=== PATIENT | male | born 1935 | race Caucasian/White ===

== ENCOUNTER 2016-12-30 09:49 | Day surgery (SDC) | payer MEDICARE, BC ==
[~2016-12-30 09:49] MED LIST: DEPAKOTE250 MG PO; LEVOTHYROXINE50 MCG PO; SEROQUEL100 MG PO; SEROQUEL50 MG PO
[2016-12-30 11:14] LABS: BASOPHILS 0.5 % (0-2); EOSINOPHILS 2.9 % (0-7); HEMATOCRIT 44.9 % (42.0-54.0); HEMOGLOBIN 14.8 g/dL (13.5-17.5); IMMATURE GRANULOCYTES 0.2 % (0-5); LYMPHOCYTES 17.5 % (15-50); MCH 30.8 pg (26.0-34.0); MCV 93.3 fL (80.0-100.0); MEAN PLATELET VOLUME 12.1 fL (7.4-10.4); MONOCYTES 9.7 % (2-11); NEUTROPHILS 69.2 % (40-80); PLATELET COUNT 182 10x3/uL (130-400); RBC 4.81 10x6/uL (4.20-6.10); RDW 13.8 % (11.5-14.5); WBC 6.1 10x3/uL (4.8-10.8)
[2016-12-30 11:29] LABS: CALC OSMOLALITY 283 mosm/kg (275-300); CALCIUM 8.8 mg/dL (8.5-10.1); CARBON DIOXIDE 29.2 mmol/L (21.0-32.0); CHLORIDE - SERUM 106 mmol/L (98-107); GLUCOSE 88 mg/dL (74-106); SODIUM 141 mmol/L (136-145); UREA NITROGEN 23 mg/dL (7-18); eGFR NON AFRICAN AMERICAN 76 mL/min (90-120)
[2016-12-30] MEDS ORDERED: VITAMIN D31000 UNIT PO (12:33)
[2016-12-30] MEDS ORDERED: VITAMIN B-121000 MCG PO (12:33)
[2016-12-30] MEDS ORDERED: PROTONIX20 MG PO (14:02)
== END 2016-12-30 14:45 | disposition home or self-care (01) ==
LOC: D.OPS 09:49
PROVIDERS: Anesthesiology
DX: R13.10 Dysphagia, unspecified (principal); K21.0 Gastro-esophageal reflux disease with esophagitis; K22.2 Esophageal obstruction; K44.9 Diaphragmatic hernia without obstruction or gangrene; I25.10 Atherosclerotic heart disease of native coronary artery without angina pectoris; G20 Parkinson's disease; Z01.812 Encounter for preprocedural laboratory examination

== ENCOUNTER → 2017-06-14 10:55 | Outpatient (CLI) | payer MEDICARE, BC ==
[2016-12-30 12:36] VITALS: BMI 28.9
[~2017-06-14 10:55] MED LIST changes: +PROTONIX20 MG PO; +VITAMIN B-121000 MCG PO; +VITAMIN D31000 UNIT PO
== END | disposition home or self-care (01) ==
LOC: D.LAB 10:55
DX: R19.7 Diarrhea, unspecified (principal)

== ENCOUNTER 2018-03-02 15:41 | Inpatient (IN) | payer MEDICARE, BC ==
[~2018-03-02] VITALS: Ht 172.7 cm; Wt 95.2 kg
--- NOTE | ~2018-03-02 | EC ---
PATIENT:RIKY REDDING DATE OF SERVICE: 03/02/18 SEX: M MEDICAL RECORD: [id number] DATE OF : [birth year] LOCATION:D.M2 D.213 AGE OF PATIENT: 82 ADMISSION DATE: 03/02/18 REFERRING PHYSICIAN: INTERPRETING PHYSICIAN: EMIGDIO PECK MD ECHOCARDIOGRAM REPORT ECHO CHARGES 4 ECHO COMPLETE Date: 03/03 CLINICAL DIAGNOSIS: FEVER,PACER,SEPSIS, ASSESS FOR VEG ECHOCARDIOGRAPHIC MEASUREMENTS (adult normal given) AC root (d.<3.7cm) 4.1 cm LV Septum d (<1.2 cm> 1.4 cm Valve Excursion 1.8 cm LV Septum (systole) 1.6 cm Left Atria (s.<4.0cm> 4.6 cm LVPW d(<1.2cm) 1.7 cm RV (d.<2.3cm) 4.5 cm LVPW (sytole) 1.9 cm LV diastole(<5.6CM) 4.7 cm MV E-F(>70mm/sec) cm LV systole 3.4 cm LVOT Diameter 1.8 cm MV exc.(>10mm) 1.5 cm Est.ejection fraction (50-75%) % DOPPLER: LVIT cm/sec A 57.0 cm/sec E 71.0 cm/sec LA cm/sec RVSP 36 mmHg LVOT 106 cm/sec AOP1/2T m/s Asc. Ao 152 cm/sec RVOT 87 cm/sec RA cm/sec PA 133 cm/sec AV Gradient Peak 9.20 mmHg AV Mean 5.57 mmHg AV Area 1.5 cm MV Gradient Peak 3.81 mmHg MV Mean 1.42 mmHg MV Area cm COMMENTS: Heating Mechanic: Matt BOLES Director Packaging: 1 Dr. Peck TAPE# PACS Pericardial Effusion N DATE OF SERVICE: 03/03/2018 PROCEDURE: Echocardiogram. FINDINGS: 1. Left ventricular chamber size is within normal limits. Left ventricular systolic function is normal. Overall ejection fraction estimated at 55%. 2. Left atrium is enlarged at 4.6 cm. Right atrium and right ventricular chamber sizes are as well mildly dilated. 3. Valvular structures have normal structure and motion. No evidence of ECHOCARDIOGRAM REPORT [id number] RIKY REDDING vegetative endocarditis. 4. No evidence of pericardial effusion or left ventricular thrombus. TRANSINT:[id number] Voice Confirmation ID: [id number] DOCUMENT ID: [id number] EMIGDIO PECK MD at 2001 CC: [id number] DICTATION DATE: 03/03/18 1635 REFINISHER: 03/03/18 1733 ADM IN [facility] [address] [place] [address]
--- NOTE | ~2018-03-02 | CN ---
PATIENT NAME:RIKY REDDING MEDICAL RECORD: [id number] : 39 LOCATION:D.Stacie D.2103 ADMIT DATE: 03/02/18 ACCOUNT: [id number] CONSULTING PHYSICIAN: ATIF STRAUSS MD REFERRING PHYSICIAN: INDRA LANDAVERDE MD DATE OF CONSULTATION: 03/03/2018 CONSULT REQUESTING PHYSICIAN: Indra Landaverde MD REASON FOR CONSULTATION: Acute hypoxic respiratory failure, bacteremia. HISTORY OF PRESENT ILLNESS: Mr. Redding is an 82-year-old gentleman who has history of Parkinson disease and dementia. According to the , he is sick since Tuesday, but there were no fever and chill, no night sweats. They brought him to the ER because he was complaining of some leg pain. Workup showed that the patient was febrile and there was significant leukocytosis. REVIEW OF SYSTEMS: The detail is in history of present illness. PAST MEDICAL HISTORY: 1. Dementia. 2. Parkinson disease. 3. Coronary artery disease. 4. Peripheral vascular disease. 5. Anxiety, depression. PAST SURGICAL HISTORY: 1. Appendectomy. 2. T&A. 3. Pacemaker, thyroidectomy. ALLERGIES: There are no known drug allergy. MEDICATIONS: Optasite is reviewed. PERSONAL AND SOCIAL HISTORY: The patient is an ex-smoker, nondrinker. FAMILY HISTORY: Noncontributory. PHYSICAL EXAMINATION: GENERAL: Now, the patient is lying comfortably. He is not in acute distress. He is wearing nasal cannula oxygen. VITAL SIGNS: The blood pressure is 123/80, pulse is 98, respirations 24, temperature is 97.5 and the T-max 101.7, SPO2 is 96% on 4 liters nasal cannula. HEENT: Conjunctivae are pink. Sclerae are not icteric. NECK: Supple, no JVD. CHEST: There are bilateral crackles. No wheezing. HEART: Rhythm regular, normal heart sound, no murmur. ABDOMEN: Soft, bowel sounds present. No hepatosplenomegaly. RECTAL: Deferred. EXTREMITIES: No cyanosis, clubbing. 1+ pedal edema. SKIN: Warm, normal turgor. CENTRAL NERVOUS SYSTEM: The patient is awake and alert, but he is very confused. There are no obvious cranial nerve abnormality. CONSULT REPORT [id number] RIKY REDDING LABORAT[facility] DATA: CBC: The WBC is 18.3, hemoglobin 13.9, hematocrit 42.1, the platelet count is 121. Chemistry: Sodium was 140, potassium 5.3, BUN is 63, creatinine 2.9. The valproic acid level is 49.9. The proBNP is 700. IMPRESSION: 1. Acute hypoxic respiratory failure. 2. Bacteremia. 3. Systemic inflammatory response syndrome type of syndrome, leukocytosis, fever, and hypotension. 4. Pneumonia, which is multilobar most likely community-acquired pneumonia. 5. Acute kidney injury. 6. Leukocytosis. 7. Febrile illness secondary to bacteremia. 8. Parkinson disease with a severe dementia. 9. Acute renal failure secondary to acute tubular necrosis. RECOMMENDATION: 1. Fluid resuscitation, the care. 2. To keep the CVP 10-12. 3. Supplemental oxygen. 4. Vancomycin IV, meropenem IV. 5. Follow up on the blood cultures. 6. Check the cardiac echo to rule out any bacterial endocarditis. 7. DVT and GI bleed prophylaxis. 8. Discussed with Dr. Landaverde. Discussed with family. Dr. Landaverde, thank you for involving me in the care of Mr. Redding. The critical care time is 50 minutes. The patient will be transferred to the ICU. TRANSINT:[id number] Voice Confirmation ID: [id number] DOCUMENT ID: [id number] ATIF STRAUSS MD at 1110 CC: [id number] DICTATION DATE: 03/03/18 1639 LOG HOOKER: 03/03/18 1746 DIS IN 03/14/18 [place] [id number] [place] [id number]
[2018-03-02] MEDS ORDERED: NORVASC5 MG PO (15:54)
[2018-03-02 16:30] LABS: BASOPHILS 0 % (0-2); EOSINOPHILS 0 % (0-7); HEMATOCRIT 45.8 % (42.0-54.0); HEMOGLOBIN 15.7 g/dL (13.5-17.5); IMMATURE GRANULOCYTES 0.4 % (0-5); LYMPHOCYTES 1.7 % (15-50); MCH 30.4 pg (26.0-34.0); MCHC 34.3 g/dL (31.0-37.0); MCV 88.8 fL (80.0-100.0); MEAN PLATELET VOLUME 11.1 fL (7.4-10.4); MONOCYTES 1.3 % (2-11); NEUTROPHILS 96.6 % (40-80); PLATELET COUNT 122 10x3/uL (130-400); RBC 5.16 10x6/uL (4.20-6.10); WBC 16.6 10x3/uL (4.8-10.8)
[2018-03-02 16:36] LABS: APTT 30.6 SECONDS (22.8-39.4); INR 1.46 (0.85-1.17); PROTIME 17.3 SECONDS (11.6-15.0)
[2018-03-02 16:38] LABS: D-DIMER-QUANTITATIVE 2.05 ug/mLFEU (0.20-0.54)
[2018-03-02 18:11] LABS: ALBUMIN 2.8 g/dL (3.4-5.0); ALKALINE PHOSPHATASE 98 U/L (46-116); ALT (SGPT) 28 U/L (10-68); BILIRUBIN - TOTAL 0.97 mg/dL (0.2-1.3); CALC OSMOLALITY 290 mosm/kg (275-300); CALCIUM 9.1 mg/dL (8.5-10.1); CARBON DIOXIDE 29.5 mmol/L (21.0-32.0); CHLORIDE - SERUM 99 mmol/L (98-107); CREATININE - SERUM 1.7 mg/dL (0.6-1.3); GLUCOSE 101 mg/dL (74-106); POTASSIUM - SERUM 4.3 mmol/L (3.5-5.1); PROTEIN - SERUM 6.3 g/dL (6.4-8.2); SODIUM 139 mmol/L (136-145); UREA NITROGEN 49 mg/dL (7-18); eGFR NON AFRICAN AMERICAN 41 mL/min (90-120)
[2018-03-02 18:21] LABS: AMYLASE - SERUM 23 U/L (25-115); CKMB 0.1 U/L (0.0-3.6); CREATINE KINASE 39 UL (21-232); LIPASE 57 U/L (73-393); MAGNESIUM - SERUM 3.4 mg/dL (1.8-2.4); TROPONIN-I < 0.017 ng/mL (0.000-0.060); VALPROIC ACID (DEPAKOTE) 49.9 ug/mL (50.0-100.0)
[2018-03-02 19:27] VITALS: BP 139/82
[2018-03-02 20:10] VITALS: BP 149/93
[2018-03-02 23:13] LABS: APPEARANCE CLEAR (CLEAR); BILIRUBIN NEGATIVE (NEGATIVE); COLOR DK YELLOW (YELLOW); GLUCOSE NEGATIVE (NEGATIVE); KETONE SMALL mg/dL (NEGATIVE); NITRITE NEGATIVE (NEGATIVE); PROTEIN NEGATIVE (NEGATIVE); SPECIFIC GRAVITY 1.015 (1.005-1.020); UROBILINOGEN NORMAL (NORMAL)
[2018-03-02 23:20] LABS: UDS - AMPHET NEGATIVE QUAL (NEGATIVE); UDS - BARB NEGATIVE QUAL (NEGATIVE); UDS - BENZO NEGATIVE QUAL (NEGATIVE); UDS - COCAINE NEGATIVE QUAL (NEGATIVE); UDS - OPIATE NEGATIVE QUAL (NEGATIVE); UDS - PCP NEGATIVE QUAL (NEGATIVE); UDS - THC NEGATIVE QUAL (NEGATIVE)
[2018-03-03] VITALS (10 sets, daily range): BP systolic 83–160; BP diastolic 49–87; Ht 172.7 cm; Wt 95.2 kg
[2018-03-03 06:51] LABS: BASOPHILS 0.1 % (0-2); EOSINOPHILS 0 % (0-7); HEMATOCRIT 42.1 % (42.0-54.0); HEMOGLOBIN 13.9 g/dL (13.5-17.5); IMMATURE GRANULOCYTES 0.2 % (0-5); LYMPHOCYTES 3.2 % (15-50); MCH 29.4 pg (26.0-34.0); MEAN PLATELET VOLUME 12.1 fL (7.4-10.4); MONOCYTES 8.4 % (2-11); NEUTROPHILS 88.1 % (40-80); PLATELET COUNT 121 10x3/uL (130-400); RBC 4.73 10x6/uL (4.20-6.10); RDW 16.6 % (11.5-14.5); WBC 18.3 10x3/uL (4.8-10.8)
[2018-03-03 07:05] LABS: ANION GAP 15.5 mmol/L (8-16); CALCIUM 9.4 mg/dL (8.5-10.1); CARBON DIOXIDE 26.8 mmol/L (21.0-32.0)
[2018-03-03 07:06] LABS: CREATININE - SERUM 2.9 mg/dL (0.6-1.3); POTASSIUM - SERUM 5.3 mmol/L (3.5-5.1)
[2018-03-03 14:07] LABS: ERYTHROCYTE SEDIMENTATION RATE 55 mm/hr (0-20)
[2018-03-03 15:28] LABS: APPEARANCE CLEAR (CLEAR); BILIRUBIN NEGATIVE (NEGATIVE); COLOR DK YELLOW (YELLOW); GLUCOSE NEGATIVE (NEGATIVE); KETONE NEGATIVE (NEGATIVE); NITRITE NEGATIVE (NEGATIVE); PROTEIN TRACE mg/dL (NEGATIVE); UROBILINOGEN NORMAL (NORMAL)
[2018-03-03 15:29] LABS: RED CELLS - URINE 0-5 /hpf (0-5)
[2018-03-03 15:30] LABS: BACTERIA MANY /hpf (NONE SEEN); WHITE CELLS - URINE OCC /hpf (0-5)
[2018-03-03 15:38] LABS: PROTEIN - URINE 104.1 mg/dL (0.0-11.9)
[2018-03-03 15:42] LABS: CREATININE - URINE 285.9 mg/dL (30-125); PRO/CRE RATIO URINE 0.4 mg/g
[2018-03-04] VITALS (25 sets, daily range): BP systolic 101–136; BP diastolic 59–768
[2018-03-04 04:14] LABS: BASOPHILS 0.1 % (0-2); EOSINOPHILS 0.1 % (0-7); HEMATOCRIT 38.5 % (42.0-54.0); HEMOGLOBIN 12.5 g/dL (13.5-17.5); IMMATURE GRANULOCYTES 0.2 % (0-5); MCH 29.5 pg (26.0-34.0); MCHC 32.5 g/dL (31.0-37.0); MCV 90.8 fL (80.0-100.0); MEAN PLATELET VOLUME 12.1 fL (7.4-10.4); MONOCYTES 7.8 % (2-11); NEUTROPHILS 85.8 % (40-80); PLATELET COUNT 108 10x3/uL (130-400); RBC 4.24 10x6/uL (4.20-6.10)
[2018-03-04 04:31] LABS: ANION GAP 10.1 mmol/L (8-16); BILIRUBIN - TOTAL 0.68 mg/dL (0.2-1.3); CALCIUM 8.4 mg/dL (8.5-10.1); CARBON DIOXIDE 28.7 mmol/L (21.0-32.0); POTASSIUM - SERUM 4.8 mmol/L (3.5-5.1); VANCOMYCIN - RANDOM 13.3 ug/mL (10.0-20.0)
[2018-03-04 04:51] LABS: CREATININE - SERUM 1.5 mg/dL (0.6-1.3)
[2018-03-05] VITALS (24 sets, daily range): BP systolic 105–147; BP diastolic 65–92
[2018-03-05 04:04] LABS: BASOPHILS 0.1 % (0-2); EOSINOPHILS 0.3 % (0-7); HEMATOCRIT 37.9 % (42.0-54.0); HEMOGLOBIN 12.2 g/dL (13.5-17.5); IMMATURE GRANULOCYTES 0.2 % (0-5); LYMPHOCYTES 10.5 % (15-50); MCHC 32.2 g/dL (31.0-37.0); MCV 90.2 fL (80.0-100.0); MEAN PLATELET VOLUME 11.6 fL (7.4-10.4); MONOCYTES 11.6 % (2-11); NEUTROPHILS 77.3 % (40-80); PLATELET COUNT 101 10x3/uL (130-400); RDW 16.8 % (11.5-14.5); WBC 8.7 10x3/uL (4.8-10.8)
[2018-03-05 04:25] LABS: ALBUMIN 1.9 g/dL (3.4-5.0); ANION GAP 8.8 mmol/L (8-16); BILIRUBIN - TOTAL 0.45 mg/dL (0.2-1.3); CALCIUM 8.4 mg/dL (8.5-10.1); POTASSIUM - SERUM 4.8 mmol/L (3.5-5.1); VANCOMYCIN - RANDOM 13.9 ug/mL (10.0-20.0)
[2018-03-05 04:40] LABS: CREATININE - SERUM 1.1 mg/dL (0.6-1.3)
[2018-03-06] VITALS (23 sets, daily range): BP systolic 100–160; BP diastolic 67–100
[2018-03-06 04:02] LABS: BASOPHILS 0.1 % (0-2); EOSINOPHILS 0.1 % (0-7); HEMATOCRIT 36.4 % (42.0-54.0); HEMOGLOBIN 11.7 g/dL (13.5-17.5); IMMATURE GRANULOCYTES 0.4 % (0-5); LYMPHOCYTES 10.1 % (15-50); MCH 28.9 pg (26.0-34.0); MCHC 32.1 g/dL (31.0-37.0); MCV 89.9 fL (80.0-100.0); MEAN PLATELET VOLUME 11.9 fL (7.4-10.4); MONOCYTES 12.5 % (2-11); NEUTROPHILS 76.8 % (40-80); PLATELET COUNT 95 10x3/uL (130-400); RBC 4.05 10x6/uL (4.20-6.10); RDW 16.9 % (11.5-14.5)
[2018-03-06 04:06] LABS: WBC 12.9 10x3/uL (4.8-10.8)
[2018-03-06 04:18] LABS: ALBUMIN 1.8 g/dL (3.4-5.0); ALKALINE PHOSPHATASE 129 U/L (46-116); ALT (SGPT) 38 U/L (10-68); BILIRUBIN - TOTAL 0.57 mg/dL (0.2-1.3); CALC OSMOLALITY 290 mosm/kg (275-300); CALCIUM 7.9 mg/dL (8.5-10.1); CARBON DIOXIDE 26.7 mmol/L (21.0-32.0); CHLORIDE - SERUM 109 mmol/L (98-107); CREATININE - SERUM 0.9 mg/dL (0.6-1.3); GLUCOSE 116 mg/dL (74-106); POTASSIUM - SERUM 4.5 mmol/L (3.5-5.1); PROTEIN - SERUM 5.4 g/dL (6.4-8.2); SODIUM 142 mmol/L (136-145); UREA NITROGEN 32 mg/dL (7-18); VANCOMYCIN - RANDOM 11.3 ug/mL (10.0-20.0); eGFR NON AFRICAN AMERICAN 86 mL/min (90-120)
[2018-03-06 16:13] LABS: SPE - A/G RATIO 0.9 (0.7-1.7); SPE - ALBUMIN 2.4 g/dL (2.9-4.4); SPE - ALPHA-1 GLOBULIN 0.3 g/dL (0.0-0.4); SPE - ALPHA-2 GLOBULIN 0.8 g/dL (0.4-1.0); SPE - BETA GLOBULIN 0.7 g/dL (0.7-1.3); SPE - GAMMA GLOBULIN 0.9 g/dL (0.4-1.8); SPE - M-SPIKE 0.1 g/dL (Not Observed); SPE - TOTAL PROTEIN 5.1 g/dL (6.0-8.5)
[2018-03-06 17:10] LABS: UPE RAND - ALBUMIN 13.8 % (()); UPE RAND - ALPHA 1 GLOBULIN 3.1 % (()); UPE RAND - ALPHA 2 GLOBULIN 22.1 % (()); UPE RAND - BETA GLOBULIN 29.5 % (()); UPE RAND - GAMMA GLOBULIN 31.5 % (())
[2018-03-07] VITALS (21 sets, daily range): BP systolic 110–145; BP diastolic 68–839
[2018-03-07 04:54] LABS: BASOPHILS 0.2 % (0-2); EOSINOPHILS 1.7 % (0-7); HEMATOCRIT 34.3 % (42.0-54.0); HEMOGLOBIN 11.1 g/dL (13.5-17.5); IMMATURE GRANULOCYTES 0.8 % (0-5); LYMPHOCYTES 12.5 % (15-50); MCH 28.9 pg (26.0-34.0); MCHC 32.4 g/dL (31.0-37.0); MCV 89.3 fL (80.0-100.0); MEAN PLATELET VOLUME 11.6 fL (7.4-10.4); MONOCYTES 8.9 % (2-11); NEUTROPHILS 75.9 % (40-80); RBC 3.84 10x6/uL (4.20-6.10); RDW 17.3 % (11.5-14.5)
[2018-03-07 05:11] LABS: PLATELET COUNT 133 10x3/uL (130-400)
[2018-03-07 05:31] LABS: APTT 40.3 SECONDS (22.8-39.4); INR 1.21 (0.85-1.17); PROTIME 14.9 SECONDS (11.6-15.0)
[2018-03-07 05:37] LABS: ALBUMIN 1.6 g/dL (3.4-5.0); ALKALINE PHOSPHATASE 132 U/L (46-116); ALT (SGPT) 31 U/L (10-68); BILIRUBIN - TOTAL 0.59 mg/dL (0.2-1.3); CALC OSMOLALITY 289 mosm/kg (275-300); CALCIUM 7.8 mg/dL (8.5-10.1); CARBON DIOXIDE 26.3 mmol/L (21.0-32.0); CHLORIDE - SERUM 111 mmol/L (98-107); CREATININE - SERUM 0.7 mg/dL (0.6-1.3); GLUCOSE 93 mg/dL (74-106); LDH 282 U/L (85-227); MAGNESIUM - SERUM 2.1 mg/dL (1.8-2.4); PHOSPHOROUS 2.5 mg/dL (2.5-4.9); POTASSIUM - SERUM 4.3 mmol/L (3.5-5.1); PROTEIN - SERUM 5.1 g/dL (6.4-8.2); SODIUM 143 mmol/L (136-145); UREA NITROGEN 27 mg/dL (7-18); VANCOMYCIN - RANDOM 32.9 ug/mL (10.0-20.0); eGFR NON AFRICAN AMERICAN > 90 mL/min (90-120)
[2018-03-08 01:30] VITALS: BP 121/71; BP 162/95
[2018-03-08 05:29] VITALS: BP 127/88
[2018-03-08 07:08] LABS: BASOPHILS 0.3 % (0-2); EOSINOPHILS 1.5 % (0-7); HEMATOCRIT 34.2 % (42.0-54.0); LYMPHOCYTES 11.8 % (15-50); MCH 28.8 pg (26.0-34.0); MCHC 32.2 g/dL (31.0-37.0); MCV 89.5 fL (80.0-100.0); MEAN PLATELET VOLUME 11.2 fL (7.4-10.4); MONOCYTES 7.1 % (2-11); NEUTROPHILS 78.3 % (40-80); RBC 3.82 10x6/uL (4.20-6.10); WBC 11.6 10x3/uL (4.8-10.8)
[2018-03-08 07:25] LABS: ALBUMIN 1.5 g/dL (3.4-5.0); ALKALINE PHOSPHATASE 144 U/L (46-116); ALT (SGPT) 35 U/L (10-68); BILIRUBIN - TOTAL 0.63 mg/dL (0.2-1.3); CALC OSMOLALITY 286 mosm/kg (275-300); CALCIUM 8.3 mg/dL (8.5-10.1); CARBON DIOXIDE 26.9 mmol/L (21.0-32.0); CHLORIDE - SERUM 110 mmol/L (98-107); GLUCOSE 90 mg/dL (74-106); POTASSIUM - SERUM 4.4 mmol/L (3.5-5.1); PROTEIN - SERUM 5.1 g/dL (6.4-8.2); SODIUM 142 mmol/L (136-145); UREA NITROGEN 25 mg/dL (7-18); VANCOMYCIN - RANDOM 26.9 ug/mL (10.0-20.0); eGFR NON AFRICAN AMERICAN 86 mL/min (90-120)
[2018-03-08 07:36] LABS: PLATELET COUNT 215 10x3/uL (130-400)
[2018-03-08 07:41] LABS: CREATININE - SERUM 0.9 mg/dL (0.6-1.3)
[2018-03-08 08:46] VITALS: BP 152/80
[2018-03-08 12:17] VITALS: BP 136/78
[2018-03-08 16:25] VITALS: BP 137/79
[2018-03-08 21:01] VITALS: BP 155/86
[2018-03-09 01:29] VITALS: BP 145/94
[2018-03-09 05:09] VITALS: BP 143/79
[2018-03-09 06:37] LABS: BASOPHILS 0.1 % (0-2); EOSINOPHILS 3.3 % (0-7); HEMATOCRIT 32.8 % (42.0-54.0); HEMOGLOBIN 10.8 g/dL (13.5-17.5); MCH 29.4 pg (26.0-34.0); MCHC 32.9 g/dL (31.0-37.0); MCV 89.4 fL (80.0-100.0); MEAN PLATELET VOLUME 11.1 fL (7.4-10.4); MONOCYTES 11.3 % (2-11); NEUTROPHILS 74.3 % (40-80); PLATELET COUNT 248 10x3/uL (130-400); RBC 3.67 10x6/uL (4.20-6.10); RDW 16.6 % (11.5-14.5); WBC 9.4 10x3/uL (4.8-10.8)
[2018-03-09 06:45] LABS: CALC OSMOLALITY 281 mosm/kg (275-300); CALCIUM 8.1 mg/dL (8.5-10.1); CARBON DIOXIDE 27.5 mmol/L (21.0-32.0); CHLORIDE - SERUM 108 mmol/L (98-107); CREATININE - SERUM 0.7 mg/dL (0.6-1.3); GLUCOSE 96 mg/dL (74-106); POTASSIUM - SERUM 4.2 mmol/L (3.5-5.1); SODIUM 140 mmol/L (136-145); UREA NITROGEN 21 mg/dL (7-18); eGFR NON AFRICAN AMERICAN > 90 mL/min (90-120)
[2018-03-09 08:48] VITALS: BP 117/76
[2018-03-09 10:48] VITALS: BP 112/71
[2018-03-09 15:41] VITALS: BP 128/68
[2018-03-09 20:08] LABS: AEROBE ID Final report (())
[2018-03-09 22:34] VITALS: BP 166/97
[2018-03-10 01:00] VITALS: BP 123/72
[2018-03-10 05:59] VITALS: BP 145/81
[2018-03-10 06:47] LABS: BASOPHILS 0.2 % (0-2); EOSINOPHILS 3.6 % (0-7); HEMATOCRIT 32.7 % (42.0-54.0); HEMOGLOBIN 10.5 g/dL (13.5-17.5); IMMATURE GRANULOCYTES 2.8 % (0-5); LYMPHOCYTES 9.7 % (15-50); MCH 28.7 pg (26.0-34.0); MCHC 32.1 g/dL (31.0-37.0); MCV 89.3 fL (80.0-100.0); MEAN PLATELET VOLUME 10.8 fL (7.4-10.4); MONOCYTES 9.2 % (2-11); NEUTROPHILS 74.5 % (40-80); RBC 3.66 10x6/uL (4.20-6.10); RDW 16.5 % (11.5-14.5); WBC 10.5 10x3/uL (4.8-10.8)
[2018-03-10 06:48] LABS: PLATELET COUNT 300 10x3/uL (130-400)
[2018-03-10 07:01] LABS: CALC OSMOLALITY 279 mosm/kg (275-300); CALCIUM 7.9 mg/dL (8.5-10.1); CARBON DIOXIDE 29.9 mmol/L (21.0-32.0); CHLORIDE - SERUM 107 mmol/L (98-107); GLUCOSE 77 mg/dL (74-106); POTASSIUM - SERUM 4.3 mmol/L (3.5-5.1); SODIUM 139 mmol/L (136-145); UREA NITROGEN 20 mg/dL (7-18); eGFR NON AFRICAN AMERICAN 86 mL/min (90-120)
[2018-03-10 07:06] LABS: CREATININE - SERUM 0.9 mg/dL (0.6-1.3)
[2018-03-10 07:52] VITALS: BP 135/81
[2018-03-10 12:02] VITALS: BP 121/76
[2018-03-10 16:27] VITALS: BP 150/91
[2018-03-10 20:00] VITALS: BP 180/99
[2018-03-11] VITALS: BP 146/86
[2018-03-11 04:00] VITALS: BP 165/90
[2018-03-11 06:06] LABS: BASOPHILS 0.2 % (0-2); EOSINOPHILS 2.5 % (0-7); HEMATOCRIT 33.1 % (42.0-54.0); HEMOGLOBIN 10.8 g/dL (13.5-17.5); IMMATURE GRANULOCYTES 2.2 % (0-5); MCH 28.8 pg (26.0-34.0); MCHC 32.6 g/dL (31.0-37.0); MCV 88.3 fL (80.0-100.0); MEAN PLATELET VOLUME 10.6 fL (7.4-10.4); MONOCYTES 9.3 % (2-11); NEUTROPHILS 79.8 % (40-80); PLATELET COUNT 336 10x3/uL (130-400); RBC 3.75 10x6/uL (4.20-6.10); RDW 16.3 % (11.5-14.5)
[2018-03-11 06:23] LABS: CALC OSMOLALITY 277 mosm/kg (275-300); CALCIUM 8.3 mg/dL (8.5-10.1); CARBON DIOXIDE 28.5 mmol/L (21.0-32.0); CHLORIDE - SERUM 105 mmol/L (98-107); CREATININE - SERUM 0.8 mg/dL (0.6-1.3); GLUCOSE 88 mg/dL (74-106); POTASSIUM - SERUM 4.3 mmol/L (3.5-5.1); SODIUM 139 mmol/L (136-145); UREA NITROGEN 16 mg/dL (7-18); eGFR NON AFRICAN AMERICAN > 90 mL/min (90-120)
[2018-03-11 08:52] VITALS: BP 147/89
[2018-03-11 16:33] VITALS: BP 137/78
[2018-03-11 21:43] VITALS: BP 153/88
[2018-03-12 03:03] VITALS: BP 137/77
[2018-03-12 05:46] LABS: CALC OSMOLALITY 276 mosm/kg (275-300); CALCIUM 8.6 mg/dL (8.5-10.1); CARBON DIOXIDE 28.4 mmol/L (21.0-32.0); CHLORIDE - SERUM 107 mmol/L (98-107); CREATININE - SERUM 0.8 mg/dL (0.6-1.3); GLUCOSE 92 mg/dL (74-106); POTASSIUM - SERUM 4.1 mmol/L (3.5-5.1); SODIUM 138 mmol/L (136-145); UREA NITROGEN 16 mg/dL (7-18); eGFR NON AFRICAN AMERICAN > 90 mL/min (90-120)
[2018-03-12 05:51] LABS: BASOPHILS 0.2 % (0-2); EOSINOPHILS 3.1 % (0-7); HEMATOCRIT 32.5 % (42.0-54.0); HEMOGLOBIN 10.8 g/dL (13.5-17.5); IMMATURE GRANULOCYTES 1.8 % (0-5); MCH 29.3 pg (26.0-34.0); MCHC 33.2 g/dL (31.0-37.0); MCV 88.1 fL (80.0-100.0); MEAN PLATELET VOLUME 10.6 fL (7.4-10.4); MONOCYTES 9.2 % (2-11); NEUTROPHILS 77.7 % (40-80); PLATELET COUNT 364 10x3/uL (130-400); RBC 3.69 10x6/uL (4.20-6.10); RDW 16.1 % (11.5-14.5); WBC 11.8 10x3/uL (4.8-10.8)
[2018-03-12 06:01] VITALS: BP 133/86
[2018-03-12 08:21] VITALS: BP 156/90
[2018-03-12 11:36] VITALS: BP 154/96
[2018-03-12 16:14] VITALS: BP 145/89
[2018-03-12 20:00] VITALS: BP 130/79
[2018-03-13] VITALS: BP 124/72
[2018-03-13 04:00] VITALS: BP 128/76
[2018-03-13 07:20] LABS: BASOPHILS 0.3 % (0-2); HEMATOCRIT 34.7 % (42.0-54.0); HEMOGLOBIN 11.3 g/dL (13.5-17.5); IMMATURE GRANULOCYTES 2.1 % (0-5); LYMPHOCYTES 6.7 % (15-50); MCH 28.9 pg (26.0-34.0); MCHC 32.6 g/dL (31.0-37.0); MCV 88.7 fL (80.0-100.0); MEAN PLATELET VOLUME 10.9 fL (7.4-10.4); MONOCYTES 9.3 % (2-11); NEUTROPHILS 78.6 % (40-80); PLATELET COUNT 410 10x3/uL (130-400); RBC 3.91 10x6/uL (4.20-6.10); RDW 16.3 % (11.5-14.5); WBC 11.7 10x3/uL (4.8-10.8)
[2018-03-13 07:31] LABS: CALC OSMOLALITY 280 mosm/kg (275-300); CALCIUM 8.4 mg/dL (8.5-10.1); CARBON DIOXIDE 30.4 mmol/L (21.0-32.0); CHLORIDE - SERUM 105 mmol/L (98-107); GLUCOSE 88 mg/dL (74-106); POTASSIUM - SERUM 3.8 mmol/L (3.5-5.1); SODIUM 140 mmol/L (136-145); UREA NITROGEN 20 mg/dL (7-18); eGFR NON AFRICAN AMERICAN 76 mL/min (90-120)
[2018-03-13 08:00] VITALS: BP 130/91
[2018-03-13 08:44] VITALS: BP 129/86
[2018-03-13 12:36] VITALS: BP 125/82
[2018-03-13 17:45] VITALS: BP 127/80
[2018-03-14] VITALS: BP 207/110
[2018-03-14 05:41] LABS: BASOPHILS 0.2 % (0-2); EOSINOPHILS 1.8 % (0-7); HEMATOCRIT 37.2 % (42.0-54.0); HEMOGLOBIN 12.2 g/dL (13.5-17.5); IMMATURE GRANULOCYTES 1.7 % (0-5); LYMPHOCYTES 8.2 % (15-50); MCH 28.6 pg (26.0-34.0); MCHC 32.8 g/dL (31.0-37.0); MCV 87.3 fL (80.0-100.0); MEAN PLATELET VOLUME 10.6 fL (7.4-10.4); MONOCYTES 8.2 % (2-11); NEUTROPHILS 79.9 % (40-80); PLATELET COUNT 457 10x3/uL (130-400); RBC 4.26 10x6/uL (4.20-6.10); RDW 16.1 % (11.5-14.5); WBC 13.1 10x3/uL (4.8-10.8)
[2018-03-14 06:15] LABS: ALBUMIN 1.9 g/dL (3.4-5.0); ALKALINE PHOSPHATASE 171 U/L (46-116); ALT (SGPT) 38 U/L (10-68); BILIRUBIN - TOTAL 0.44 mg/dL (0.2-1.3); CALC OSMOLALITY 283 mosm/kg (275-300); CALCIUM 8.7 mg/dL (8.5-10.1); CARBON DIOXIDE 28.9 mmol/L (21.0-32.0); CHLORIDE - SERUM 103 mmol/L (98-107); GLUCOSE 115 mg/dL (74-106); POTASSIUM - SERUM 4.1 mmol/L (3.5-5.1); PROTEIN - SERUM 6.1 g/dL (6.4-8.2); SODIUM 139 mmol/L (136-145); eGFR NON AFRICAN AMERICAN 76 mL/min (90-120)
[2018-03-14 06:16] LABS: UREA NITROGEN 27 mg/dL (7-18)
[2018-03-14 07:00] VITALS: BP 144/85
[2018-03-14 10:25] VITALS: BP 125/83
[2018-03-14 11:00] VITALS: BP 121/79
[2018-03-14] MEDS ORDERED: LASIX40 MG PO (13:06)
== END 2018-03-14 18:58 | DRG 871 ==
LOC: D.ER 15:41 → D.EDHOLD 19:33 → D.ICU 19:33 → D.M2 19:33 → D.ICU 03-03 20:03 → D.M2 03-07 22:18
PROVIDERS: Family Medicine; Internal Medicine Nephrology; Internal Medicine Pulmonary Disease
PROC: 02H633Z Insertion of Infusion Device into Right Atrium, Percutaneous Approach (ICD-10-PCS; principal; 2018-03-03)
PROC: B244ZZZ Ultrasonography of Right Heart (ICD-10-PCS; 2018-03-03)
DX: A41.89 Other specified sepsis (principal); J96.01 Acute respiratory failure with hypoxia; N17.0 Acute kidney failure with tubular necrosis; J69.0 Pneumonitis due to inhalation of food and vomit; N39.0 Urinary tract infection, site not specified; K80.00 Calculus of gallbladder with acute cholecystitis without obstruction; D68.4 Acquired coagulation factor deficiency; G20 Parkinson's disease; F02.80 Dementia in other diseases classified elsewhere, unspecified severity, without behavioral disturbance, psychotic disturbance, mood disturbance, and anxiety; Z95.0 Presence of cardiac pacemaker; F32.9 Major depressive disorder, single episode, unspecified; F41.9 Anxiety disorder, unspecified; I25.10 Atherosclerotic heart disease of native coronary artery without angina pectoris; I10 Essential (primary) hypertension; Z87.891 Personal history of nicotine dependence; R74.8 Abnormal levels of other serum enzymes; D69.6 Thrombocytopenia, unspecified; E03.9 Hypothyroidism, unspecified; R53.81 Other malaise; K31.84 Gastroparesis; K22.8 Other specified diseases of esophagus; R65.20 Severe sepsis without septic shock

== ENCOUNTER → 2018-07-13 13:29 | Outpatient (CLI) | payer MEDICARE, BC ==
[2018-03-03 21:48] VITALS: BMI 20.3
[~2018-07-13 13:29] MED LIST changes: +LASIX40 MG PO; +NORVASC5 MG PO
== END | disposition home or self-care (01) ==
LOC: D.US 13:29
DX: R19.7 Diarrhea, unspecified (principal); R19.4 Change in bowel habit; R63.4 Abnormal weight loss

== ENCOUNTER → 2018-07-17 09:08 | Outpatient (CLI) | payer MEDICARE, BC ==
[2018-03-03 21:48] VITALS: BMI 20.3
== END | disposition home or self-care (01) ==
LOC: D.US 09:08
DX: R19.7 Diarrhea, unspecified (principal); R19.4 Change in bowel habit; R63.4 Abnormal weight loss

== ENCOUNTER 2018-08-12 08:51 | Emergency (ER) | payer MEDICARE, BC ==
[2018-08-12 09:33] LABS: BASOPHILS 0.1 % (0-2); EOSINOPHILS 0 % (0-7); HEMATOCRIT 40.5 % (42.0-54.0); HEMOGLOBIN 13.8 g/dL (13.5-17.5); IMMATURE GRANULOCYTES 0.2 % (0-5); LYMPHOCYTES 6.3 % (15-50); MCH 30.1 pg (26.0-34.0); MCHC 34.1 g/dL (31.0-37.0); MCV 88.4 fL (80.0-100.0); MEAN PLATELET VOLUME 11.2 fL (7.4-10.4); NEUTROPHILS 80.4 % (40-80); RBC 4.58 10x6/uL (4.20-6.10); RDW 14.5 % (11.5-14.5); WBC 8.3 10x3/uL (4.8-10.8)
[2018-08-12 09:35] LABS: PLATELET COUNT 160 10x3/uL (130-400)
[2018-08-12 09:48] LABS: ALBUMIN 2.8 g/dL (3.4-5.0); ALKALINE PHOSPHATASE 72 U/L (46-116); ALT (SGPT) 23 U/L (10-68); BILIRUBIN - TOTAL 0.45 mg/dL (0.2-1.3); CALC OSMOLALITY 272 mosm/kg (275-300); CALCIUM 8.8 mg/dL (8.5-10.1); CHLORIDE - SERUM 100 mmol/L (98-107); CREATININE - SERUM 1.4 mg/dL (0.6-1.3); GLUCOSE 98 mg/dL (74-106); POTASSIUM - SERUM 4.3 mmol/L (3.5-5.1); PROTEIN - SERUM 6.4 g/dL (6.4-8.2); SODIUM 134 mmol/L (136-145); UREA NITROGEN 26 mg/dL (7-18); eGFR NON AFRICAN AMERICAN 52 mL/min (90-120)
[2018-08-12 09:56] LABS: CREATINE KINASE 48 UL (21-232); LIPASE 138 U/L (73-393); PRO BNP 1393 pg/mL (0-450); TROPONIN-I < 0.017 ng/mL (0.000-0.060)
[2018-08-12 10:20] LABS: APPEARANCE CLEAR (CLEAR); COLOR YELLOW (YELLOW); NITRITE NEGATIVE (NEGATIVE); SPECIFIC GRAVITY 1.015 (1.005-1.020)
[2018-08-12 10:21] LABS: BILIRUBIN NEGATIVE (NEGATIVE); GLUCOSE NEGATIVE (NEGATIVE); KETONE SMALL mg/dL (NEGATIVE); PROTEIN NEGATIVE (NEGATIVE); UROBILINOGEN NORMAL (NORMAL)
[2018-08-12 10:25] LABS: BACTERIA FEW /hpf (NONE SEEN); EPITHELIAL CELLS 0-5 /hpf (0-5); RED CELLS - URINE 0-5 /hpf (0-5); WHITE CELLS - URINE 0-5 /hpf (0-5)
== END 2018-08-12 10:25 | disposition home or self-care (01) ==
LOC: D.ER 08:51
PROVIDERS: Family Medicine
DX: R50.9 Fever, unspecified (principal); F03.90 Unspecified dementia, unspecified severity, without behavioral disturbance, psychotic disturbance, mood disturbance, and anxiety; R53.81 Other malaise; G20 Parkinson's disease; Z95.0 Presence of cardiac pacemaker; Z85.828 Personal history of other malignant neoplasm of skin

== ENCOUNTER 2018-10-10 11:56 | Emergency (ER) | payer MEDICARE, BC ==
[~2018-10-10] VITALS: Ht 172.7 cm; Wt 81.8 kg
[2018-10-10 12:10] VITALS: Ht 172.7 cm; Wt 81.8 kg
[2018-10-10 13:38] LABS: BASOPHILS 0.1 % (0-2); EOSINOPHILS 0.2 % (0-7); HEMATOCRIT 45.6 % (42.0-54.0); IMMATURE GRANULOCYTES 0.1 % (0-5); LYMPHOCYTES 5.2 % (15-50); MCH 30.3 pg (26.0-34.0); MCHC 32.9 g/dL (31.0-37.0); MCV 92.1 fL (80.0-100.0); MONOCYTES 5.3 % (2-11); NEUTROPHILS 89.1 % (40-80); RBC 4.95 10x6/uL (4.20-6.10); RDW 14.4 % (11.5-14.5); WBC 8.9 10x3/uL (4.8-10.8)
[2018-10-10 13:49] LABS: PLATELET COUNT 271 10x3/uL (130-400)
[2018-10-10 13:51] LABS: ALBUMIN 3.3 g/dL (3.4-5.0); ANION GAP 16.1 mmol/L (8-16); BILIRUBIN - TOTAL 0.43 mg/dL (0.2-1.3); CALCIUM 9.4 mg/dL (8.5-10.1); CARBON DIOXIDE 26.1 mmol/L (21.0-32.0); CREATININE - SERUM 1.5 mg/dL (0.6-1.3); POTASSIUM - SERUM 4.2 mmol/L (3.5-5.1); PROTEIN - SERUM 8.4 g/dL (6.4-8.2)
[2018-10-10] MEDS ORDERED: ZOFRAN ODT4 MG/UDTAB PO (16:36)
[2018-10-10 17:11] VITALS: BP 158/95
== END 2018-10-10 17:15 | disposition home or self-care (01) ==
LOC: D.ER 11:56
PROVIDERS: Emergency Medicine
DX: B34.9 Viral infection, unspecified (principal); R11.2 Nausea with vomiting, unspecified

== ENCOUNTER 2019-08-21 17:12 | Emergency (ER) | payer MEDICARE, BC ==
[~2019-08-21] VITALS: Ht 172.7 cm; Wt 81.8 kg
[~2019-08-21 17:12] MED LIST changes: +ZOFRAN ODT4 MG/UDTAB PO
[2019-08-21 17:20] VITALS: Ht 172.7 cm; Wt 81.8 kg
[2019-08-21] MEDS ORDERED: PROPRANOLOL HCL20 MG PO (17:22)
[2019-08-21 17:51] LABS: BASOPHILS 0.2 % (0-2); EOSINOPHILS 1.8 % (0-7); HEMATOCRIT 48.3 % (42.0-54.0); HEMOGLOBIN 16.3 g/dL (13.5-17.5); IMMATURE GRANULOCYTES 0.3 % (0-5); LYMPHOCYTES 10.1 % (15-50); MCH 31.8 pg (26.0-34.0); MCHC 33.7 g/dL (31.0-37.0); MCV 94.3 fL (80.0-100.0); MEAN PLATELET VOLUME 10.8 fL (7.4-10.4); MONOCYTES 8.2 % (2-11); NEUTROPHILS 79.4 % (40-80); PLATELET COUNT 218 10x3/uL (130-400); RBC 5.12 10x6/uL (4.20-6.10); RDW 12.8 % (11.5-14.5); WBC 10.3 10x3/uL (4.8-10.8)
[2019-08-21 18:09] LABS: CALC OSMOLALITY 287 mosm/kg (275-300); CALCIUM 8.8 mg/dL (8.5-10.1); CARBON DIOXIDE 29.1 mmol/L (21.0-32.0); CHLORIDE - SERUM 106 mmol/L (98-107); CREATININE - SERUM 1.1 mg/dL (0.6-1.3); GLUCOSE 121 mg/dL (74-106); POTASSIUM - SERUM 4.3 mmol/L (3.5-5.1); SODIUM 142 mmol/L (136-145); UREA NITROGEN 23 mg/dL (7-18); eGFR NON AFRICAN AMERICAN 68 mL/min (90-120)
[2019-08-21 18:18] LABS: ALBUMIN 3.7 g/dL (3.4-5.0); ALKALINE PHOSPHATASE 78 U/L (46-116); ALT (SGPT) 32 U/L (10-68); AMYLASE - SERUM 105 U/L (25-115); BILIRUBIN - TOTAL 0.44 mg/dL (0.2-1.3); LIPASE 304 U/L (73-393)
[2019-08-21 18:19] LABS: TROPONIN-I < 0.017 ng/mL (0.000-0.060)
[2019-08-21] MEDS ORDERED: ZOFRAN ODT4 MG/UDTAB PO (20:09)
[2019-08-21 20:10] LABS: APPEARANCE CLEAR (CLEAR); BILIRUBIN NEGATIVE (NEGATIVE); COLOR YELLOW (YELLOW); GLUCOSE NEGATIVE (NEGATIVE); KETONE MODERATE mg/dL (NEGATIVE); NITRITE NEGATIVE (NEGATIVE); PROTEIN NEGATIVE (NEGATIVE); UROBILINOGEN NORMAL (NORMAL)
[2019-08-21 20:25] VITALS: BP 150/90
== END 2019-08-21 20:18 | disposition home or self-care (01) ==
LOC: D.ER 17:12
PROVIDERS: Family Medicine
DX: R11.2 Nausea with vomiting, unspecified (principal); G20 Parkinson's disease; E07.9 Disorder of thyroid, unspecified; Z95.0 Presence of cardiac pacemaker; F03.90 Unspecified dementia, unspecified severity, without behavioral disturbance, psychotic disturbance, mood disturbance, and anxiety

== ENCOUNTER 2019-11-16 12:48 | Emergency (ER) | payer MEDICARE, BC ==
[~2019-11-16] VITALS: Ht 172.7 cm; Wt 88.6 kg
[~2019-11-16 12:48] MED LIST changes: +PROPRANOLOL HCL20 MG PO
[2019-11-16 12:55] VITALS: Ht 172.7 cm; Wt 88.6 kg
[2019-11-16 13:22] LABS: BASOPHILS 0.3 % (0-2); EOSINOPHILS 3.1 % (0-7); HEMATOCRIT 44.8 % (42.0-54.0); HEMOGLOBIN 15.2 g/dL (13.5-17.5); IMMATURE GRANULOCYTES 0.2 % (0-5); LYMPHOCYTES 13.5 % (15-50); MCH 31.8 pg (26.0-34.0); MCHC 33.9 g/dL (31.0-37.0); MCV 93.7 fL (80.0-100.0); MEAN PLATELET VOLUME 11.2 fL (7.4-10.4); NEUTROPHILS 69.9 % (40-80); PLATELET COUNT 200 10x3/uL (130-400); RBC 4.78 10x6/uL (4.20-6.10); RDW 13.1 % (11.5-14.5); WBC 6.5 10x3/uL (4.8-10.8)
[2019-11-16 13:39] LABS: APTT 31.8 SECONDS (22.8-39.4); INR 1.06 (0.85-1.17); PROTIME 13.8 SECONDS (11.6-15.0)
[2019-11-16 13:44] LABS: CALC OSMOLALITY 278 mosm/kg (275-300); CALCIUM 8.8 mg/dL (8.5-10.1); CHLORIDE - SERUM 104 mmol/L (98-107); CREATININE - SERUM 1.2 mg/dL (0.6-1.3); GLUCOSE 97 mg/dL (74-106); POTASSIUM - SERUM 4.3 mmol/L (3.5-5.1); SODIUM 138 mmol/L (136-145); UREA NITROGEN 22 mg/dL (7-18); eGFR NON AFRICAN AMERICAN 61 mL/min (90-120)
[2019-11-16 14:03] LABS: ACETAMINOPHEN 0.9 ug/mL (10.0-30.0); ALBUMIN 3.4 g/dL (3.4-5.0); ALKALINE PHOSPHATASE 67 U/L (30-120); ALT (SGPT) 24 U/L (10-68); BILIRUBIN - TOTAL 0.54 mg/dL (0.2-1.3); CKMB 0.8 U/L (0.0-3.6); CREATINE KINASE 52 UL (21-232); MAGNESIUM - SERUM 2.2 mg/dL (1.8-2.4); PROTEIN - SERUM 6.9 g/dL (6.4-8.2); THYROID STIMULATING HORMONE 2.53 uIU/mL (0.36-3.74)
[2019-11-16 14:06] LABS: TROPONIN-I < 0.017 ng/mL (0.000-0.060)
[2019-11-16 15:32] LABS: UDS - AMPHET NEGATIVE QUAL (NEGATIVE); UDS - BARB NEGATIVE QUAL (NEGATIVE); UDS - BENZO NEGATIVE QUAL (NEGATIVE); UDS - COCAINE NEGATIVE QUAL (NEGATIVE); UDS - OPIATE NEGATIVE QUAL (NEGATIVE); UDS - PCP NEGATIVE QUAL (NEGATIVE); UDS - THC NEGATIVE QUAL (NEGATIVE)
[2019-11-16 15:37] LABS: BILIRUBIN NEGATIVE (NEGATIVE); GLUCOSE NEGATIVE (NEGATIVE); KETONE NEGATIVE (NEGATIVE); NITRITE NEGATIVE (NEGATIVE); RED CELLS - URINE 25-50 /hpf (0-5); SPECIFIC GRAVITY 1.015 (1.005-1.020); UROBILINOGEN NORMAL (NORMAL); WHITE CELLS - URINE 0-5 /hpf (NEGATIVE)
[2019-11-16 15:57] VITALS: BP 133/68
== END 2019-11-16 22:21 ==
LOC: D.ER 12:48
PROVIDERS: Family Medicine
DX: R44.3 Hallucinations, unspecified (principal); G31.83 Neurocognitive disorder with Lewy bodies; Z95.0 Presence of cardiac pacemaker; F02.81 Dementia in other diseases classified elsewhere, unspecified severity, with behavioral disturbance; E07.9 Disorder of thyroid, unspecified